=== PATIENT | female | born 2000 | race Caucasian/White ===

== ENCOUNTER 2024-04-23 11:42 | Emergency (ER) | payer BC, SELFPAY ==
[2024-04-23 11:46] VITALS: BP 134/85; PULSE 100; TEMP 36.9; O2SAT 98; BMI 36.6
--- NOTE | 2024-04-23 12:21 | ED_ITS ---
HPI HPI - General Adult General Chief complaint: Back Pain/Injury Stated complaint: LOWER BACK PAIN Time Seen by Provider: 04/23/24 11:54 Source: patient Mode of arrival: walk-in History of Present Illness HPI narrative: Patient presents ED complaining of left lower back pain. Patient states that it started on Sunday. She states she went to the emergency room on Sunday and they did a CT scan showing no kidney stones but she did have a little bit of blood in the urine. They sent her home with Keflex as an antibiotic in case this was an infection. She said they did not send her home with anything for pain and she has been having worsening pain since. She said the pain is in the left low back but does radiate all the way across radiates around the left hip. No weakness no loss of bowel or bladder habits no abdominal pain. Patient denies . No fevers no nausea vomiting. She was concerned because the pain was still there so she came in for further evaluation. Related Data Previous Rx's ?Medication ?Instructions ?Recorded methylprednisolone 4 mg tablets in 4 mg PO DAILY back pain #21 ea 04/23/24 a dose pack (Medrol ([place])) Allergies Allergy/AdvReac Type Severity Reaction Status Date / Time No Known Drug Allergies Allergy Verified 04/23/24 11:53 Opioid HPI Opioid Management Most Recent Opioid Data: No Data to Display Review of Systems ROS Status of ROS 10 or more systems reviewed and unremark able except as noted in history and below PFSH PFSH Social History Little interest or pleasure in doing things: not at all Feeling down, depressed, or hopeless: not at all Exam Narrative Exam Narrative: General: alert, no acute distress Cardiovascular: regular rate and rhythm, normal peripheral perfusion. Respiratory: Lungs CTA, respirations non labored. Abdomen soft nontender nondistended Extremities: no deformity, no trauma. Normal distal pulses and sensation and strength Pain to palpation in the left SI joint and left lower lumbar area Neurological: oriented x 4, LOC appropriate for age. Constitutional Vital Signs, click to edit/add: Last Vital Signs Temp 98.4 F 04/23/24 11:46 Pulse 100 H 04/23/24 11:46 Resp 18 04/23/24 11:46 BP 134/85 04/23/24 11:46 Pulse Ox 98 04/23/24 11:46 O2 Del Method Room Air 04/23/24 11:46 Course Vital Signs Vital signs: Vital Signs Temperature 98.4 F 04/23/24 11:46 Pulse Rate 100 H 04/23/24 11:46 Respiratory Rate 18 04/23/24 11:46 Blood Pressure 134/85 04/23/24 11:46 Pulse Oximetry 98 04/23/24 11:46 Oxygen Delivery Method Room Air 04/23/24 11:46 Temperature 98.4 F 04/23/24 11:46 Pulse Rate 100 H 04/23/24 11:46 Respiratory Rate 18 04/23/24 11:46 Blood Pressure 134/85 04/23/24 11:46 Pulse Oximetry 98 04/23/24 11:46 Oxygen Delivery Method Room Air 04/23/24 11:46 Medical Decision Making MDM Narrative Medical decision making narrative: Patient's labs are nonacute. Urine shows no blood and no nitrites very small leukocytes. No fever nausea or vomiting. CT scan recently per patient was negative for any kidney stone. I do not see an indication for additional CAT scan at this time. Patient is on Keflex, continue to completion since she already started it. Take Tylenol and Motrin for pain and I also called her in a Medrol Dosepak for the back pain. Follow-up with family doctor or return to ER for worsening symptoms. Differential Diagnosis Differential Diagnosis: UTI, kidney stone, lumbar strain, lumbar radiculopathy Medical Records Medical records reviewed: Yes I reviewed the patient's medical records Lab Data Lab results reviewed: Yes I reviewed the patient's lab results Labs: Lab Results 04/23/24 04/23/24 Range/Units 11:55 12:35 WBC 10.8 (4.0-11.0) 10^3/uL RBC 4.32 (4.20-5.40) 10^6/uL Hgb 15.4 (12.0-16.0) g/dL Hct 44.6 (36.0-48.0) % MCV 103.2 H (81.0-99.0) fL MCH 35.6 H (26.7-34.0) pg MCHC 34.5 (29.9-35.2) g/dL RDW 13.1 (11.0-15.0) % Plt Count 235 (150-450) 10^3/uL MPV 10.6 (9.5-13.5) fL Neut % (Auto) 63.9 (43.0-75.0) % Lymph % (Auto) 28.4 (20.5-60.0) % [place] % (Auto) 4.5 (1.7-12.0) % Eos % (Auto) 2.1 (0.9-7.0) % Baso % (Auto) 0.5 (0.2-2.0) % Neut # (Auto) 6.9 H (1.4-6.5) 10^3/uL Lymph # (Auto) 3.1 (1.2-3.8) 10^3/uL [place] # (Auto) 0.5 (0.3-0.8) 10^3/uL Eos # (Auto) 0.2 (0.0-0.7) 10^3/uL Baso # (Auto) 0.1 (0.0-0.1) 10^3/uL Abs Immat Gran (auto) 0.07 H (0.00-0.03) 10^3/uL Imm/Tot Granulo (auto) 0.6 H (0.0-0.5) % Sodium 138 (136-145) mmol/L Potassium 4.2 (3.5-5.1) mmol/L Chloride 103 (98-107) mmol/L Carbon Dioxide 25.1 (21.0-32.0) mmol/L Anion Gap 14.1 BUN 6.0 L (7.0-18.0) mg/dL Creatinine 1.18 H (0.55-1.02) mg/dL Est GFR ( Amer) >60 (>=60 mL/min/1.73m^2) Est GFR (Non-Af Amer) 56 L (>=60 mL/min/1.73m^2) BUN/Creatinine Ratio 5.1 Glucose 105 (74-106) mg/dL Calcium 9.1 (8.5-10.1) mg/dL Total Bilirubin 0.7 (0.2-1.0) mg/dL AST 13 L (15-37) U/L ALT 15 (14-59) U/L Alkaline Phosphatase 93 (46-116) U/L Total Protein 7.2 (6.4-8.2) g/dL Albumin 3.4 (3.4-5.0) g/dL Globulin 3.8 g/dL Albumin/Globulin Ratio 0.9 Urine Color Lt. yellow (YELLOW) Urine Clarity Clear (CLEAR) Urine pH 8.0 (5.0-9.0) Ur Specific [place] 1.015 (1.005-1.025) Urine Protein Negative (NEG/TRACE) mg/dL Urine Glucose (UA) Negative (NEGATIVE) mg/dL Urine Ketones Negative (NEGATIVE) mg/dL Urine Occult Blood Negative (NEGATIVE) Urine Nitrite Negative (NEGATIVE) Urine Bilirubin Negative (NEGATIVE) Urine Urobilinogen 0.2 (0.2-1.0) EU/dL Ur Leukocyte Esterase Small A (NEGATIVE) Urine RBC 0-2 (0-2) #/HPF Urine WBC 5-10 A (NONE SEEN) #/HPF Ur Squamous Epith Cells Few A (NONE/RARE) #/LPF Urine Crystals None seen (None Seen) #/HPF Urine Bacteria Trace A (NONE SEEN) #/HPF Urine Casts None seen (NONE SEEN) #/LPF Urine Mucus None seen (NONE SEEN) Ur Culture Indicated? Yes Urine HCG, Qual Negative (NEGATIVE) Discharge Plan Discharge Chief Complaint: Back Pain/Injury Clinical Impression: Strain of lumbar region Patient Disposition: Home, Self-Care Time of Disposition Decision: 13:15 Mode of Transportation: Private Vehicle Prescriptions / Home Meds: New methylprednisolone [Medrol ([place])] 4 mg tablets,dose pack 4 mg PO DAILY Qty: 21 0RF Rx Instructions: disp one pack taper as directed Print Language: Armenian Instructions: Back Pain (ED) Referrals: Omayra Romo NP [Primary Care Provider] - 1 week Discharge Date/Time: 04/23/24 13:41
[2024-04-23 12:31] LABS: Bilirubin Urine NEGATIVE (NEGATIVE); Blood Urine NEGATIVE (NEGATIVE); Clarity Urine CLEAR (CLEAR); Color Urine LT. YELLOW (YELLOW); Glucose Urine UA NEGATIVE (NEGATIVE); Ketones Urine NEGATIVE (NEGATIVE); Leukocyte Esterase Urine SMALL (NEGATIVE); Nitrite Urine NEGATIVE (NEGATIVE); Protein Urine NEGATIVE (NEG/TRACE); Specific Gravity Urine 1.015 (1.005-1.025); Urobilinogen Urine 0.2 EU/dL (0.2-1.0)
[2024-04-23 12:34] LABS: Urine Microscopic Indicated YES
[2024-04-23] MEDS: KETOROLAC TROMETHAMINE 30 MG/ML VIAL IVP (12:36)
[2024-04-23] MEDS: ORPHENADRINE 60 MG/ 2 ML VIAL IV (12:36)
[2024-04-23 12:39] LABS: Basophils Absolute Auto 0.1 10^3/uL (0.0-0.1); Basophils Percent Auto 0.5 % (0.2-2.0); Eosinophils Absolute Auto 0.2 10^3/uL (0.0-0.7); Eosinophils Percent Auto 2.1 % (0.9-7.0); Hematocrit 44.6 % (36.0-48.0); Hemoglobin 15.4 g/dL (12.0-16.0); Immature Granulocytes Abs Auto 0.07 10^3/uL (0.00-0.03); Immature Granulocytes Pct Auto 0.6 % (0.0-0.5); Lymphocytes Absolute Auto 3.1 10^3/uL (1.2-3.8); Lymphocytes Percent Auto 28.4 % (20.5-60.0); Mean Corpuscular HGB Conc 34.5 g/dL (29.9-35.2); Mean Corpuscular Hemoglobin 35.6 pg (26.7-34.0); Mean Corpuscular Volume 103.2 fL (81.0-99.0); Mean Platelet Volume 10.6 fL (9.5-13.5); Monocytes Absolute Auto 0.5 10^3/uL (0.3-0.8); Monocytes Percent Auto 4.5 % (1.7-12.0); Neutrophils Absolute Auto 6.9 10^3/uL (1.4-6.5); Neutrophils Percent Auto 63.9 % (43.0-75.0); Platelet Count 235 10^3/uL (150-450); Red Blood Count 4.32 10^6/uL (4.20-5.40); Red Cell Distribution Width 13.1 % (11.0-15.0); White Blood Count 10.8 10^3/uL (4.0-11.0)
[2024-04-23 12:41] LABS: Bacteria Urine TRACE #/HPF (NONE SEEN); Cast Seen? NONE SEEN #/LPF (NONE SEEN); Crystals Seen? None Seen #/HPF (None Seen); Mucus Urine NONE SEEN (NONE SEEN); RBC Urine 0-2 #/HPF (0-2); Squamous Epithelial Cell Urine FEW #/LPF (NONE/RARE); Urine Culture Indicated YES
[2024-04-23 12:42] LABS: HCG Qualitative Urine* NEGATIVE (NEGATIVE); Internal Control Within Normal Limits
[2024-04-23 12:57] LABS: Alanine Aminotransferase 15 U/L (14-59); Albumin Globulin Ratio 0.9; Albumin Level 3.4 g/dL (3.4-5.0); Alkaline Phosphatase 93 U/L (46-116); Anion Gap 14.1; Aspartate Amino Transferase 13 U/L (15-37); BUN Creatinine Ratio 5.1; Bilirubin Total 0.7 mg/dL (0.2-1.0); Calcium 9.1 mg/dL (8.5-10.1); Carbon Dioxide 25.1 mmol/L (21.0-32.0); Chloride 103 mmol/L (98-107); Estimated GFR (African America >60 (>=60 mL/min/1.73m^2); Estimated GFR (Non-African Ame 56 (>=60 mL/min/1.73m^2); Globulin 3.8 g/dL; Glucose 105 mg/dL (74-106); Potassium 4.2 mmol/L (3.5-5.1); Sodium 138 mmol/L (136-145); Total Protein 7.2 g/dL (6.4-8.2)
== END 2024-04-23 13:41 | disposition home or self-care (01) ==
PROVIDERS: Emergency Provider Emergency Medicine; PCP Nurse Practitioner Family
DX: S39.012A Strain of muscle, fascia and tendon of lower back, initial encounter (principal); X58.XXXA Exposure to other specified factors, initial encounter
CPT/HCPCS: 36415; 80053; 81001; 84703; 85025; 87086; 96374; 96375; 99284; J1885; J2360